=== PATIENT | male | born 1985 | race Caucasian/White ===

== ENCOUNTER 2017-06-21 19:45 | Emergency (ER) | payer OTHER ==
[~2017-06-21] VITALS: Ht 170.2 cm; Wt 86.0 kg
[~2017-06-21 19:45] MED LIST: CHLO50TA6 PO; DEPA250T PO; LEXA20TA PO; LOVA1TAB47 PO; OMEP20TA39 PO; PANT20 PO; TAB-TAB PO; ZOFR4TAB3 SL
[2017-06-21 20:23] VITALS: BP 113/64; PULSE 118; RESP 18; TEMP 99.9; O2SAT 96
[2017-06-21] MEDS ORDERED: SODIUM CHLOR 0.9% 1000 ML INJ 1,000 ML IV ONE (20:56)
[2017-06-21] MEDS ORDERED: IBUPROFEN 600 MG TAB PO ONE (21:00)
[2017-06-21] MEDS ORDERED: PANT20TA2 PO (21:00)
[2017-06-21] MEDS ORDERED: ALPR.5 PO (21:00)
[2017-06-21] MEDS ORDERED: DIVA250T3 PO (21:00)
[2017-06-21] MEDS ORDERED: LEXA10TA PO (21:00)
[2017-06-21] MEDS ORDERED: LOVA20TA PO (21:00)
[2017-06-21 21:01] VITALS: O2SAT 99
--- NOTE | 2017-06-21 21:03 | PD ---
HPI Chief Complaint: Fever Time Seen by Provider: 20:56 Travel History International Travel<30 days: No Contact w/Intl Traveler<30days: No Traveled to known affect area: No History of Present Illness HPI 32-year-old male with history of cerebral palsy, left-sided paresis, presents to the ER today because of a few days of fevers, headaches, fever of 103 today according to mom. He denies any sore throat, coughing, shortness of breath, vomiting, or any other symptoms. They do not know a sick contact. Modifying Factors: None Associated Signs & Symptoms: Fevers, headaches Risk Factors: None PFSH Past Medical History Blood Disorders: No Anxiety: Yes Depression: Yes Cancer: No Cardiovascular Problems: No Cerebral Palsy: Yes High Cholesterol: Yes Diminished Hearing: No Endocrine: No Gastrointestinal Disorders: Yes Genitourinary: No Immune Disorder: No Musculoskeletal: Yes Neurologic: Yes Psychiatric: Yes Reproductive: No Respiratory: No Seizures: Yes Past Surgical History Cholecystectomy: Yes Oral Surgery: Yes (TONSILECTOMY 1987) Pacemaker: No Tonsillectomy: Yes Other Surgery: Yes Social History Alcohol Use: No Tobacco Use: No Substance Use: No Allergies-Medications (Allergen,Severity, Reaction): Coded Allergies: Risperdal (Verified Allergy, Severe, COMBATIVE, 06/21/17) Seroquel (Verified Allergy, Severe, COMBATIVE, 06/21/17) Zyprexa (Verified Allergy, Severe, Swelling, 06/21/17) Phenobarbital (Verified Allergy, Mild, RASH, 06/21/17) Tegretol (Verified Allergy, Mild, RASH, 06/21/17) Reported Meds & Prescriptions Reported Meds & Active Scripts Active Reported Xanax (Alprazolam) 0.5 Mg Tab 0.5 Mg PO Q6H PRN Pantoprazole (Pantoprazole Sodium) 20 Mg Tab 20 Mg PO DAILY Lovastatin 20 Mg Tab 20 Mg PO DAILY Lexapro (Escitalopram Oxalate) 10 Mg Tab 10 Mg PO DAILY Divalproex ER (Divalproex Sodium) 250 Mg Isaiah 750 Mg PO DAILY Review of Systems Except as stated in HPI: all other systems reviewed are Neg Physical Exam Narrative GENERAL: Young white male with cerebral palsy and left-sided paresis, awake, alert, oriented 3, none acute distress. SKIN: Focused skin assessment warm/dry. HEAD: Atraumatic. Normocephalic. EYES: Pupils equal and round. No scleral icterus. No injection or drainage. ENT: No nasal bleeding or discharge. Mucous membranes pink and moist. NECK: Trachea midline. No JVD. CARDIOVASCULAR: Regular rate and rhythm. No murmur appreciated. RESPIRATORY: No accessory muscle use. Clear to auscultation. Breath sounds equal bilaterally. GASTROINTESTINAL: Abdomen soft, non-tender, nondistended. Hepatic and splenic margins not palpable. MUSCULOSKELETAL: No obvious deformities. No clubbing. No cyanosis. No edema. NEUROLOGICAL: Awake and alert. No obvious cranial nerve deficits. Left-sided paresis. Normal speech. PSYCHIATRIC: Appropriate mood and affect; insight and judgment normal. Data Data Last Documented VS Vital Signs Date Time Temp Pulse Resp B/P Pulse Ox O2 Delivery O2 Flow Rate FiO2 06/21/17 21:05 107 16 139/71 06/21/17 21:01 99 Room Air 06/21/17 20:23 99.9 Orders Complete Blood Count With Diff (06/21/17 20:56) Comprehensive Metabolic Panel (06/21/17 20:56) Lactic Acid Sepsis Protocol (06/21/17 20:56) Urinalysis - C+S If Indicated (06/21/17 20:56) Blood Culture (06/21/17 20:56) Chest, Single Ap (06/21/17 20:56) Blood Glucose (06/21/17 20:56) Ecg Monitoring (06/21/17 20:56) Iv Access Insert/Monitor (06/21/17 20:56) Oximetry (06/21/17 20:56) Oxygen Administration (06/21/17 20:56) Ibuprofen (Motrin) (06/21/17 21:00) Sodium Chlor 0.9% 1000 Ml Inj (Ns 1000 M (06/21/17 20:56) Labs Laboratory Tests Test 06/21/17 06/21/17 21:15 21:24 Urine Color YELLOW Urine Turbidity CLEAR Urine pH 5.5 Urine Specific [place] 1.026 Urine Protein NEG mg/dL Urine Glucose (UA) NEG mg/dL Urine Ketones NEG mg/dL Urine Occult Blood NEG Urine Nitrite NEG Urine Bilirubin NEG Urine Leukocyte Esterase NEG Urine WBC 0-2 /hpf Urine Squamous Epithelial 0-5 /hpf Cells Urine Mucus MOD /lpf Microscopic Urinalysis Comment CULT NOT INDICATED Lactic Acid Level 1.4 mmol/L White Blood Count 6.4 TH/MM3 Red Blood Count 4.90 MIL/MM3 Hemoglobin 13.9 GM/DL Hematocrit 42.2 % Mean Corpuscular Volume 86.1 FL Mean Corpuscular Hemoglobin 28.4 PG Mean Corpuscular Hemoglobin 33.0 % Concent Red Cell Distribution Width 12.9 % Platelet Count 184 TH/MM3 Mean Platelet Volume 8.1 FL Neutrophils (%) (Auto) 63.0 % Lymphocytes (%) (Auto) 22.0 % Monocytes (%) (Auto) 10.4 % Eosinophils (%) (Auto) 0.3 % Basophils (%) (Auto) 4.3 % Neutrophils # (Auto) 4.0 TH/MM3 Lymphocytes # (Auto) 1.4 TH/MM3 Monocytes # (Auto) 0.7 TH/MM3 Eosinophils # (Auto) 0.0 TH/MM3 Basophils # (Auto) 0.3 TH/MM3 CBC Comment DIFF FINAL Differential Comment Sodium Level 139 MEQ/L Potassium Level 3.8 MEQ/L Chloride Level 103 MEQ/L Carbon Dioxide Level 29.3 MEQ/L Anion Gap 7 MEQ/L Blood Urea Nitrogen 13 MG/DL Creatinine 1.00 MG/DL Estimat Glomerular Filtration 86 ML/MIN Rate Random Glucose 84 MG/DL Calcium Level 9.0 MG/DL Total Bilirubin 0.4 MG/DL Aspartate Amino Transf 21 U/L (AST/SGOT) Alanine Aminotransferase 36 U/L (ALT/SGPT) Alkaline Phosphatase 70 U/L Total Protein 7.8 GM/DL Albumin 3.6 GM/DL MDM Medical Decision Making Medical Screen Exam Complete: Yes Emergency Medical Condition: Yes Medical Record Reviewed: Yes Interpretation(s) Laboratory Tests Test 06/21/17 06/21/17 21:15 21:24 Urine Mucus MOD /lpf (OCC) Monocytes (%) (Auto) 10.4 % (0.0-8.0) Basophils (%) (Auto) 4.3 % (0.0-2.0) Basophils # (Auto) 0.3 TH/MM3 (0-0.2) Estimat Glomerular Filtration 86 ML/MIN (>89) Rate Last 24 hours Impressions Chest X-Ray 06/21/172055 Signed Impressions: Service Date/Time: Wednesday, June 21, 2017 21:41 - CONCLUSION: The lungs are clear. Sam Kuo MD Differential Diagnosis Fevers, headachesinfluenza versus viral syndrome versus sepsis Narrative Course Patient's fever came down in the ER nicely. He is well-appearing. Vital signs are stable. Lab work did not show significant leukocytosis. At this point, I suspect that he may have some underlying viral processes causing his current fevers. My plan would be to release him with follow-up to primary care physician. Return for new issues as needed. The plan has been discussed with him and parents and they state understanding. Diagnosis Primary Impression: Fever Disposition: 01 DISCHARGE HOME Condition: Stable Benny Horton MD Jun 21, 2017 21:02
[2017-06-21 21:05] VITALS: BP 139/71; PULSE 107; RESP 16
[2017-06-21 21:41] LABS: BASOPHIL # 0.3 TH/MM3 (0-0.2); BASOPHIL % 4.3 % (0.0-2.0); EOSINOPHIL % 0.3 % (0.0-4.0); HEMATOCRIT 42.2 % (39.0-51.0); HEMO FLAGS DIFF FINAL; LYMPHOCYTE # 1.4 TH/MM3 (1.0-4.8); MEAN CELL VOLUME 86.1 FL (80.0-100.0); MEAN CORPUSCULAR HEMOGLOBIN 28.4 PG (27.0-34.0); MONO % 10.4 % (0.0-8.0); PLATELET COUNT 184 TH/MM3 (150-450); RED CELL DISTRIBUTION WIDTH 12.9 % (11.6-17.2); WHITE BLOOD COUNT 6.4 TH/MM3 (4.0-11.0)
[2017-06-21 21:41] LABS: BLOOD, URINE NEG (NEG); GLUCOSE,URINE NEG (NEG); KETONE, URINE NEG (NEG); NITRITE,URINE NEG (NEG); PH, URINE 5.5 (5.0-8.5)
[2017-06-21 21:48] LABS: URINE COLOR YELLOW (YELLW/STRAW)
[2017-06-21 21:49] LABS: MUCUS URINE MOD /lpf (OCC)
[2017-06-21 21:50] LABS: COMMENT (UR) CULT NOT INDICATED; CULTURE IF INDICATED CULT NOT INDICATED; SQUAMOUS EPITHELIAL CELL URINE 0-5 /hpf (0-5); WBC, URINE 0-2 /hpf (0-5)
[2017-06-21 21:51] LABS: CHLORIDE 103 MEQ/L (98-107); POTASSIUM 3.8 MEQ/L (3.5-5.1); SODIUM (NA) 139 MEQ/L (136-145)
[2017-06-21 21:54] LABS: ANION GAP 7 MEQ/L (5-15); BICARBONATE 29.3 MEQ/L (21.0-32.0)
[2017-06-21 21:55] LABS: BLOOD UREA NITROGEN 13 MG/DL (7-18)
--- NOTE | 2017-06-21 21:56 | RADRPT ---
EXAM DATE/TIME: 06/21/2017 21:41 [facility] COMPARISON: No previous studies available for comparison. INDICATIONS : Fever. Cough. MEDICAL HISTORY : None. SURGICAL HISTORY : None. ENCOUNTER: Initial ACUITY: 3 days PAIN SCORE: 6/10 LOCATION: Bilateral chest FINDINGS: A single view of the chest demonstrates the lungs to be symmetrically aerated without evidence of mas s, infiltrate or effusion. The cardiomediastinal contours are unremarkable. Moderate scoliosis of t he thoracic spine convex towards the left.. CONCLUSION: The lungs are clear. Sam Kuo MD on June 21, 2017 at 21:54 Board Certified Radiologist. This report was verified electronically.
[2017-06-21 21:57] LABS: ALT (GPT) 36 U/L (12-78)
[2017-06-21 21:58] LABS: AST (GOT) 21 U/L (15-37); GLOMERULAR FILTRATION RATE 86 ML/MIN (>89)
[2017-06-21 21:59] LABS: TOTAL BILIRUBIN ADULT 0.4 MG/DL (0.2-1.0)
[2017-06-21 22:00] LABS: ALKALINE PHOSPHATASE 70 U/L (45-117)
[2017-06-21 22:47] VITALS: BP 98/68; TEMP 98.4
== END 2017-06-21 22:57 | disposition home or self-care (01) ==
LOC: PHED 19:45
DX: R50.9 Fever, unspecified (principal); R51 Headache
CPT/HCPCS: 71010; 80053; 81001; 83605; 85025; 87040; 96360; 99284; J7030